=== PATIENT | female | born 1975 | race Two or more races ===

== ENCOUNTER → 2025-10-07 | Outpatient (BNVA) | payer OTHER, SELFPAY | END | disposition home or self-care (01) | PROVIDERS: PCP Nurse Practitioner Family; Referring Provider Nurse Practitioner Family; Visit Provider Nurse Practitioner Family | DX: Z12.31 Encounter for screening mammogram for malignant neoplasm of breast (principal); T78.40XA Allergy, unspecified, initial encounter; Z23 Encounter for immunization | CPT/HCPCS: 90471; 90715; 99214 ==

== ENCOUNTER → 2025-10-29 | Outpatient (BNVA) | payer OTHER, SELFPAY | END | disposition home or self-care (01) | PROVIDERS: PCP Nurse Practitioner Family; Referring Provider Nurse Practitioner Family; Visit Provider Nurse Practitioner Primary Care | DX: R03.0 Elevated blood-pressure reading, without diagnosis of hypertension (principal) | CPT/HCPCS: 99212 ==

== ENCOUNTER → 2025-11-08 | Outpatient (BNVA) | payer BC, SELFPAY | END | disposition home or self-care (01) | PROVIDERS: PCP Nurse Practitioner Family; Referring Provider Nurse Practitioner Family; Visit Provider Nurse Practitioner Family | DX: Z12.4 Encounter for screening for malignant neoplasm of cervix (principal) | CPT/HCPCS: 81001; 81025; 99215; Q0091 ==

== ENCOUNTER → 2025-11-11 | Outpatient (BNVA) | payer BC, SELFPAY | END | disposition home or self-care (01) | PROVIDERS: PCP Nurse Practitioner Family; Referring Provider Nurse Practitioner Family; Visit Provider Nurse Practitioner Family | DX: Z00.00 Encounter for general adult medical examination without abnormal findings (principal); E55.9 Vitamin D deficiency, unspecified; E66.01 Morbid (severe) obesity due to excess calories; E78.5 Hyperlipidemia, unspecified; E03.8 Other specified hypothyroidism; Z11.3 Encounter for screening for infections with a predominantly sexual mode of transmission; R73.03 Prediabetes; N94.10 Unspecified dyspareunia; Z78.0 Asymptomatic menopausal state; K02.9 Dental caries, unspecified; Z12.11 Encounter for screening for malignant neoplasm of colon; Z72.3 Lack of physical exercise; Z68.30 Body mass index [BMI] 30.0-30.9, adult | CPT/HCPCS: 99173; 99215 ==

== ENCOUNTER → 2025-11-19 | Outpatient (BNVA) | payer BC, SELFPAY | END | disposition home or self-care (01) | PROVIDERS: PCP Nurse Practitioner Family; Referring Provider Nurse Practitioner Family; Visit Provider Nurse Practitioner Family | DX: Z71.2 Person consulting for explanation of examination or test findings (principal); Z12.4 Encounter for screening for malignant neoplasm of cervix | CPT/HCPCS: 99212; G0463 ==

== ENCOUNTER → 2025-11-20 | Outpatient (BNVA) | payer BC, SELFPAY | END | disposition home or self-care (01) | PROVIDERS: PCP Nurse Practitioner Family; Referring Provider Nurse Practitioner Family; Visit Provider Nurse Practitioner Family | DX: Z71.2 Person consulting for explanation of examination or test findings (principal); E55.9 Vitamin D deficiency, unspecified; E78.5 Hyperlipidemia, unspecified; R73.03 Prediabetes; E03.8 Other specified hypothyroidism | CPT/HCPCS: 99212; G0463 ==